=== PATIENT | female | born 1965 | race Caucasian/White ===

== ENCOUNTER 2020-05-03 04:00 | Emergency (ER) | payer OTHER ==
--- NOTE | 2020-05-03 04:08 | ED Physician Documentation ---
History of Present Illness - Stated complaint Stated Complaint: N/V/D - History obtained from History obtained from: Patient - Additonal information Additional information: 55-year-old female who is undergoing a bowel prep for colonoscopy today and is having severe nausea and vomiting and diarrhea denies any other complaints. Review of Systems Constitutional: reports: Reviewed and negative Eyes: reports: Reviewed and negative Ears: reports: Reviewed and negative Nose: reports: Reviewed and negative Throat: reports: Reviewed and negative Cardiac: reports: Reviewed and negative Respiratory: reports: Reviewed and negative GI: reports: Nausea, Vomiting, Diarrhea : reports: Reviewed and negative Skin: reports: Reviewed and negative Musculoskeletal: reports: Reviewed and negative Neurologic: reports: Reviewed and negative Psychiatric: reports: Reviewed and negative Endocrine: reports: Reviewed and negative Immunocompromised: reports: Reviewed and negative PD PAST MEDICAL HISTORY - Present Medications Home Medications: Ambulatory Orders Medication Instructions Recorded Confirmed Aspirin 1 tab PO DAILY 05/03/20 05/03/20 Losartan Potassium 50 mg PO QPM 05/03/20 05/03/20 Lovastatin 40 mg PO DAILY 05/03/20 05/03/20 Venlafaxine [Effexor] 37.5 mg PO DAILY 05/03/20 05/03/20 hydroCHLOROthiazide 25 mg PO DAILY 05/03/20 05/03/20 [Hydrochlorothiazide] - Allergies Allergies/Adverse Reactions: Allergies Allergy/AdvReac Type Severity Reaction Status Date / Time amoxicillin Allergy Itching Verified 05/03/20 04:23 erythromycin base AdvReac Nausea Verified 05/03/20 04:42 PD ED PE NORMAL - Vitals Vital signs reviewed: Yes - General General: Alert and oriented X 3, No acute distress, Well developed/nourished - HEENT HEENT: Atraumatic, PERRL - Neck Neck: Supple, no meningeal sign - Cardiac Cardiac: RRR, No murmur, Strong equal pulses - Respiratory Respiratory: No respiratory distress, Clear bilaterally - Abdomen Abdomen: Normal bowel sounds, Soft, Non tender, Non distended, No organomegaly - Derm Derm: Warm and dry - Extremities Extremities: No deformity, No tenderness to palpate, Normal ROM s pain, No edema, No calf tenderness / cord - Neuro Neuro: Alert and oriented X 3, 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, No motor deficit, No sensory deficit, Normal speech - Psych Psych: Normal mood, Normal affect Results - Vitals Vitals: Vital Signs - 24 hr 05/03/20 05/03/20 04:00 04:41 Temperature 36.7 C Heart Rate 76 82 Respiratory 13 13 Rate Blood Pressure 123/88 H 152/97 H O2 Saturation 100 100 Oxygen O2 Source Room air - Labs Labs: Laboratory Tests 05/03/20 05/03/20 05/03/20 04:20 04:20 04:20 WBC 10.5 RBC 5.01 Hgb 14.6 Hct 43.3 MCV 86.4 MCH 29.1 MCHC 33.7 RDW 14.3 Plt Count 350 MPV 8.8 Neut # (Auto) 7.4 H Lymph # (Auto) 1.9 Lipscomb # (Auto) 0.8 Eos # (Auto) 0.3 Baso # (Auto) 0.1 Absolute Nucleated RBC 0.00 Nucleated RBC % 0.0 PT 13.9 H INR 1.2 APTT 28.1 Sodium 135 Potassium 2.8 L Chloride 98 L Carbon Dioxide 26 Anion Gap 11.0 BUN 13 Creatinine 1.0 Estimated GFR (MDRD) 57 L Glucose 123 H Lactic Acid Calcium 9.8 Total Bilirubin 2.3 H AST 27 ALT 24 Alkaline Phosphatase 86 Total Protein 8.2 Albumin 4.8 Globulin 3.4 Albumin/Globulin Ratio 1.4 Lipase 36 05/03/20 04:25 WBC RBC Hgb Hct MCV MCH MCHC RDW Plt Count MPV Neut # (Auto) Lymph # (Auto) Lipscomb # (Auto) Eos # (Auto) Baso # (Auto) Absolute Nucleated RBC Nucleated RBC % PT INR APTT Sodium Potassium Chloride Carbon Dioxide Anion Gap BUN Creatinine Estimated GFR (MDRD) Glucose Lactic Acid 1.9 Calcium Total Bilirubin AST ALT Alkaline Phosphatase Total Protein Albumin Globulin Albumin/Globulin Ratio Lipase PD MEDICAL DECISION MAKING - ED course Complexity details: reviewed results, re-evaluated patient (feeling better, patient wants to be discharged so she can go to her colonoscopy at 7 am in [place] considered differential (dehydration. ), d/w patient, other Departure - Departure Disposition: 01 Home, Self Care Clinical Impression: Dehydration Vomiting Qualifiers: Vomiting type: unspecified Vomiting Intractability: unspecified Nausea presence: unspecified Qualified Code(s): R11.10 - Vomiting, unspecified Diarrhea Qualifiers: Diarrhea type: unspecified type Qualified Code(s): R19.7 - Diarrhea, unspecified Condition: Stable Instructions: ED Diet Vomiting Diarrhea Follow-Up: your, doctor [Other] Comments: Okay to go to colonoscopy this morning. Call your primary care provider today to schedule follow-up.
[2020-05-03] MEDS ORDERED: ONDANSETRON 4 MG/2 ML VIAL IVP STA (04:18)
[2020-05-03] MEDS ORDERED: SODIUM CHLORIDE 0.9% 1,000 ML IV STA ×2 (04:18→04:44)
[2020-05-03 04:28] LABS: BASOPHILS # (AUTO) 0.1 10^3/uL (0.0-0.1); BASOPHILS % (AUTO) 0.7 %; EOSINOPHILS # (AUTO) 0.3 10^3/uL (0.0-0.7); EOSINOPHILS % (AUTO) 2.6 %; HGB - HEMOGLOBIN 14.6 g/dL (12.0-16.0); LYMPHOCYTES # (AUTO) 1.9 10^3/uL (1.5-3.5); LYMPHOCYTES % (AUTO) 18.1 %; MEAN CORPUSCULAR HEMOGLOBIN 29.1 pg (27.0-31.0); MEAN CORPUSCULAR HGB CONC 33.7 g/dL (32.0-36.0); MEAN CORPUSCULAR VOLUME 86.4 fL (81.0-99.0); MEAN PLATELET VOLUME 8.8 fL (7.9-10.8); MONOCYTES # (AUTO) 0.8 10^3/uL (0.0-1.0); MONOCYTES % (AUTO) 7.5 %; NEUTROPHILS # (AUTO) 7.4 10^3/uL (1.5-6.6); NEUTROPHILS % (AUTO) 70.6 %; PLT - PLATELET COUNT 350 10^3/uL (130-450); RED BLOOD COUNT 5.01 10^6/uL (4.20-5.40); RED CELL DISTRIBUTION WIDTH 14.3 % (12.0-15.0); WHITE BLOOD COUNT 10.5 x10^3/uL (4.8-10.8)
[2020-05-03 04:33] LABS: INR 1.2 (0.8-1.2); PT - PROTHROMBIN TIME 13.9 secs (9.9-12.6)
[2020-05-03 04:40] LABS: ALBUMIN 4.8 g/dL (3.2-5.5); ALBUMIN/GLOBULIN RATIO 1.4 (1.0-2.2); BILIRUBIN,TOTAL 2.3 mg/dL (0.2-1.0); CALCIUM 9.8 mg/dL (8.5-10.3); PARTIAL THROMBOPLASTIN TIME 28.1 secs (24.9-33.3); TOTAL PROTEIN 8.2 g/dL (6.7-8.2)
[2020-05-03 05:38] VITALS: BP 140/90
== END 2020-05-03 05:37 | disposition home or self-care (01) ==
LOC: ED 04:00
DX: E86.0 Dehydration (principal); R11.2 Nausea with vomiting, unspecified; R19.7 Diarrhea, unspecified; Z79.82 Long term (current) use of aspirin
CPT/HCPCS: 36415; 80053; 83605; 83690; 85025; 85610; 85730; 96361; 96374; 99283

== ENCOUNTER 2021-01-16 21:06 | Emergency (ER) | payer OTHER ==
[2021-01-16 21:52] LABS: BASOPHILS # (AUTO) 0.1 10^3/uL (0.0-0.1); BASOPHILS % (AUTO) 0.7 %; EOSINOPHILS # (AUTO) 0.3 10^3/uL (0.0-0.7); EOSINOPHILS % (AUTO) 2.9 %; HCT - HEMATOCRIT 42.3 % (37.0-47.0); HGB - HEMOGLOBIN 14.2 g/dL (12.0-16.0); LYMPHOCYTES # (AUTO) 2.1 10^3/uL (1.5-3.5); LYMPHOCYTES % (AUTO) 19.8 %; MEAN CORPUSCULAR HEMOGLOBIN 28.9 pg (27.0-31.0); MEAN CORPUSCULAR HGB CONC 33.6 g/dL (32.0-36.0); MEAN CORPUSCULAR VOLUME 86.2 fL (81.0-99.0); MEAN PLATELET VOLUME 9.1 fL (7.9-10.8); MONOCYTES # (AUTO) 0.6 10^3/uL (0.0-1.0); MONOCYTES % (AUTO) 5.8 %; NEUTROPHILS # (AUTO) 7.5 10^3/uL (1.5-6.6); NEUTROPHILS % (AUTO) 70.4 %; PLT - PLATELET COUNT 321 10^3/uL (130-450); RED BLOOD COUNT 4.91 10^6/uL (4.20-5.40); RED CELL DISTRIBUTION WIDTH 14.3 % (12.0-15.0); WHITE BLOOD COUNT 10.6 x10^3/uL (4.8-10.8)
--- NOTE | 2021-01-16 21:53 | ED Physician Documentation ---
PD HPI ABD PAIN - Stated complaint Stated Complaint: ABD PX/VOMITING - Chief complaint Chief Complaint: Abd Pain - History obtained from History obtained from: Patient - History of Present Illness Timing - onset: Enter time (14:00), Today Timing - details: Gradual onset Pain level now: 4 Quality: Cramping Location: All over / everywhere Radiation: Other (no radiation) Improved by: Other (no ameliorating factors) Worsened by: Other (no exacerbating factors) Associated symptoms: Nausea, Vomiting. No: Fever, Diarrhea, Constipation, Dysuria Similar symptoms before: Has not had sx before Recently seen: Not recently seen - Additional information Additional information: Patient complains of nausea and vomiting, generalized abdominal cramping pain, since 2 PM today. She denies fevers and has been checking her temperature, although she has also been having chills and sweats. She also complains of fa tigue. Review of Systems Constitutional: reports: Chills, Fatigue, Sweats. denies: Fever Cardiac: reports: Reviewed and negative Respiratory: reports: Reviewed and negative GI: reports: Abdominal Pain, Nausea, Vomiting. 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 - Present Medications Home Medications: Ambulatory Orders Medication Instructions Recorded Confirmed Aspirin 1 tab PO DAILY 05/03/20 01/16/21 Losartan Potassium 50 mg PO QPM 05/03/20 01/16/21 Lovastatin 40 mg PO DAILY 05/03/20 01/16/21 Venlafaxine [Effexor] 37.5 mg PO DAILY 05/03/20 01/16/21 hydroCHLOROthiazide 25 mg PO DAILY 05/03/20 01/16/21 [Hydrochlorothiazide] Ondansetron Odt [Zofran] 4 mg TL Q6H PRN #10 tablet 01/16/21 - Allergies Allergies/Adverse Reactions: Allergies Allergy/AdvReac Type Severity Reaction Status Date / Time amoxicillin Allergy Itching Verified 01/16/21 21:31 erythromycin base AdvReac Nausea Verified 01/16/21 21:31 - Social History Does the pt smoke?: No Smoking Status: Never smoker Does the pt drink ETOH?: No Does the pt have substance abuse?: No - Immunizations Immunizations are current?: Yes - POLST Patient has POLST: No PD ED PE NORMAL - Vitals Vital signs reviewed: Yes - General General: Alert and oriented X 3, No acute distress, Well developed/nourished - HEENT HEENT: Other (tacky mucous membranes) - Neck Neck: Supple, no meningeal sign - Cardiac Cardiac: RRR, No murmur - Respiratory Respiratory: No respiratory distress, Clear bilaterally - Abdomen Abdomen: Normal bowel sounds, Soft, Non tender, Non distended, No organomegaly - Back Back: No CVA TTP Results - Vitals Vitals: Vital Signs - 24 hr 01/16/21 01/16/21 01/17/21 21:20 23:29 00:09 Temperature 36.3 C L 36.7 C 36.3 C L Heart Rate 74 89 87 Respiratory 18 16 Rate Blood Pressure 141/85 H 171/98 H 161/96 H O2 Saturation 100 98 99 Oxygen O2 Source Room air - Labs Labs: Laboratory Tests 01/16/21 01/16/21 21:45 21:45 WBC 10.6 RBC 4.91 Hgb 14.2 Hct 42.3 MCV 86.2 MCH 28.9 MCHC 33.6 RDW 14.3 Plt Count 321 MPV 9.1 Neut # (Auto) 7.5 H Lymph # (Auto) 2.1 Kemper # (Auto) 0.6 Eos # (Auto) 0.3 Baso # (Auto) 0.1 Absolute Nucleated RBC 0.00 Nucleated RBC % 0.0 Sodium 142 Potassium 2.9 L Chloride 101 Carbon Dioxide 28 Anion Gap 13.0 BUN 15 Creatinine 0.7 Estimated GFR (MDRD) 87 L Glucose 159 H Calcium 9.4 Total Bilirubin 1.6 H AST 22 ALT 16 Alkaline Phosphatase 91 Total Protein 7.7 Albumin 4.6 Globulin 3.1 Albumin/Globulin Ratio 1.5 Lipase 38 PD MEDICAL DECISION MAKING - ED course Complexity details: reviewed results, re-evaluated patient, considered differential, d/w patient ED course: patient presents with nausea and vomiting, generalized abdominal cramping but completely nontender on abdominal exam. she is afebrile and has a normal CBC including normal white blood cell count. The rest of her labs are unremarkable except for mild hypokalemia with a potassium of 2.9, and mild hyperbilirubinemia with a bilirubin of 1.6. Of note, she had a Reggie Esparza of 2.3 on a visit April of last year. The rest of her liver function tests tonight are normal. On reevaluation, after Zofran and IV fluids, patient says she feels well and is comfortable with discharge home. I reviewed the lab test results with her, and advised her to follow up with her primary care provider for reevaluation of her symptoms as well as her lab abnormalities. Departure - Departure Disposition: , Self Care Clinical Impression: Hypokalemia Vomiting Qualifiers: Vomiting type: unspecified Vomiting Intractability: non-intractable Nausea presence: with nausea Qualified Code(s): R11.2 - Nausea with vomiting, unspecified Abdominal pain Qualifiers: Abdominal location: generalized Qualified Code(s): R10.84 - Generalized abdominal pain Condition: Good Instructions: ED Potassium Deficiency, ED Nausea Vomiting Prescriptions: Ondansetron Odt [Zofran] 4 mg TL Q6H PRN #10 tablet PRN Reason: Nausea / Vomiting Comments: Follow up with your primary care provider to discuss the lab abnormalities and likely retesting Discharge Date/Time: 01/17/21 00:34
[2021-01-16 22:06] LABS: ALBUMIN 4.6 g/dL (3.2-5.5); ALBUMIN/GLOBULIN RATIO 1.5 (1.0-2.2); BILIRUBIN,TOTAL 1.6 mg/dL (0.2-1.0); CALCIUM 9.4 mg/dL (8.5-10.3); CREATININE 0.7 mg/dL (0.4-1.0); POTASSIUM 2.9 mmol/L (3.5-5.0); TOTAL PROTEIN 7.7 g/dL (6.7-8.2)
[2021-01-16] MEDS ORDERED: KETOROLAC 30 MG/ML VIAL IVP STA (22:06)
[2021-01-16] MEDS ORDERED: SODIUM CHLORIDE 0.9% 1,000 ML IV STA (22:06)
[2021-01-16] MEDS ORDERED: ONDANSETRON 4 MG/2 ML VIAL IVP STA (22:06)
[2021-01-16] MEDS ORDERED: ONDANSETRON ODT 4 MG Prepack 2 TL PRN (23:47)
[2021-01-16] MEDS ORDERED: POTASSIUM CHLORIDE 20 MEQ TABLET PO STA (23:47)
[2021-01-17 00:22] VITALS: BP 161/96
== END 2021-01-17 00:34 | disposition home or self-care (01) ==
LOC: ED 21:06
DX: R11.2 Nausea with vomiting, unspecified (principal); R10.84 Generalized abdominal pain; E87.6 Hypokalemia; R79.89 Other specified abnormal findings of blood chemistry; I10 Essential (primary) hypertension; Z79.82 Long term (current) use of aspirin
CPT/HCPCS: 36415; 80053; 83690; 85025; 96361; 96374; 96375; 99283; 99284; A9270

== ENCOUNTER 2021-06-06 06:45 | Emergency (ER) | payer OTHER ==
[2021-06-06] MEDS ORDERED: ONDANSETRON 4 MG/2 ML VIAL IVP STA (07:11)
[2021-06-06] MEDS ORDERED: SODIUM CHLORIDE 0.9% 1,000 ML IV STA (07:11)
[2021-06-06 07:34] LABS: BASOPHILS # (AUTO) 0.1 10^3/uL (0.0-0.1); BASOPHILS % (AUTO) 0.7 %; EOSINOPHILS % (AUTO) 0.3 %; HCT - HEMATOCRIT 42.5 % (37.0-47.0); HGB - HEMOGLOBIN 14.2 g/dL (12.0-16.0); LYMPHOCYTES # (AUTO) 1.3 10^3/uL (1.5-3.5); LYMPHOCYTES % (AUTO) 13.2 %; MEAN CORPUSCULAR HEMOGLOBIN 28.6 pg (27.0-31.0); MEAN CORPUSCULAR HGB CONC 33.4 g/dL (32.0-36.0); MEAN CORPUSCULAR VOLUME 85.5 fL (81.0-99.0); MEAN PLATELET VOLUME 8.9 fL (7.9-10.8); MONOCYTES # (AUTO) 0.4 10^3/uL (0.0-1.0); MONOCYTES % (AUTO) 4.2 %; NEUTROPHILS # (AUTO) 8.2 10^3/uL (1.5-6.6); NEUTROPHILS % (AUTO) 80.8 %; PLT - PLATELET COUNT 313 10^3/uL (130-450); RED BLOOD COUNT 4.97 10^6/uL (4.20-5.40); RED CELL DISTRIBUTION WIDTH 14.4 % (12.0-15.0); WHITE BLOOD COUNT 10.1 x10^3/uL (4.8-10.8)
--- NOTE | 2021-06-06 07:40 | ED Physician Documentation ---
History of Present Illness - Stated complaint Stated Complaint: VOMITING/DEHYDARTION - Chief complaint Chief Complaint: Abd Pain - History obtained from History obtained from: Patient - Additonal information Additional information: Patient comes emergency department chief complaint of nausea vomiting and upper abdominal pain that started last night. Patient states that started roughly 1999 which was about 2 hours after she ate dinner. The patient had he did have frozen egg rolls and states that nobody else ate the same food. She had been feeling fine all day and suddenly began to feel nauseated about 2 hours later. She ended up vomiting, and states she has vomited all throughout the night. The patient has been trying to take sips of water in between, and states that the water does not come up right away but that she just cannot hold anything down. Patient does not have any nausea medicine at home. She states she has felt bloated and gassy", but has not had diarrhea. She has been passing flatus copiously. No sick contacts. The patient has had some sweats but no measured fever. Her highest temperature orally was 99.5. The patient states she has a pressure-like discomfort and cramping sensation intermittently across her upper abdomen and wrapping around to her right flank. She states it does not really feel like a pain, but it is uncomfortable to lay over there. No history of cholelithiasis in the patient and the family. Patient still has her gallbladder. She has had a total hysterectomy, but still has her appendix. No history of bowel obstruction. Patient denies any dysuria. No other complaints at this time. Review of Systems Ten Systems: 10 systems reviewed and negative Constitutional: reports: Reviewed and negative Eyes: reports: Reviewed and negative Ears: reports: Reviewed and negative Nose: reports: Reviewed and negative Throat: reports: Reviewed and negative Cardiac: reports: Reviewed and negative Respiratory: reports: Reviewed and negative GI: reports: Abdominal Pain, Nausea, Vomiting. 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 - Present Medications Home Medications: Ambulatory Orders Medication Instructions Recorded Confirmed Aspirin 1 tab PO DAILY 05/03/20 06/06/21 Losartan Potassium 50 mg PO QPM 05/03/20 06/06/21 Venlafaxine [Effexor] 37.5 mg PO DAILY 05/03/20 06/06/21 hydroCHLOROthiazide 25 mg PO DAILY 05/03/20 06/06/21 [Hydrochlorothiazide] Ondansetron Odt [Zofran] 4 mg TL Q6H PRN #10 tablet 01/16/21 06/06/21 Atorvastatin Calcium 40 mg PO QPM 06/06/21 06/06/21 Ondansetron Odt [Zofran] 4 mg TL Q6H PRN #10 tablet 06/06/21 - Allergies Allergies/Adverse Reactions: Allergies Allergy/AdvReac Type Severity Reaction Status Date / Time amoxicillin Allergy Itching Verified 06/06/21 06:57 erythromycin base AdvReac Nausea Verified 06/06/21 06:57 - Social History Does the pt smoke?: No Smoking Status: Never smoker Does the pt drink ETOH?: No Does the pt have substance abuse?: No - Immunizations Immunizations are current?: Yes - POLST Patient has POLST: No PD ED PE NORMAL - Vitals Vital signs reviewed: Yes - General General: Alert and oriented X 3, No acute distress, Well developed/nourished - HEENT HEENT: Atraumatic, PERRL, EOMI, Moist mucous membranes - Neck Neck: Supple, no meningeal sign - Cardiac Cardiac: RRR, No murmur, Strong equal pulses - Respiratory Respiratory: No respiratory distress, Clear bilaterally - Abdomen Abdomen: Soft, Non tender (Deep palpation right upper quadrant does not elicit tenderness.), Non distended, Other - Back Back: No CVA TTP - Derm Derm: Normal color, Warm and dry, No rash - Extremities Extremities: No deformity, Normal ROM s pain, No edema, No calf tenderness / cord - Neuro Neuro: Alert and oriented 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, 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, Normal speech - Psych Psych: Normal mood, Normal affect Results - Vitals Vitals: Vital Signs - 24 hr 06/06/21 06/06/21 07:38 08:36 Temperature 36.6 C Heart Rate 90 86 Respiratory 16 16 Rate Blood Pressure 180/101 H 176/93 H O2 Saturation 100 100 Oxygen O2 Source Room air - Labs Labs: Laboratory Tests 06/06/21 06/06/21 06/06/21 07:20 07:30 07:30 WBC 10.1 RBC 4.97 Hgb 14.2 Hct 42.5 MCV 85.5 MCH 28.6 MCHC 33.4 RDW 14.4 Plt Count 313 MPV 8.9 Neut # (Auto) 8.2 H Lymph # (Auto) 1.3 L Giles # (Auto) 0.4 Eos # (Auto) 0.0 Baso # (Auto) 0.1 Absolute Nucleated RBC 0.00 Nucleated RBC % 0.0 Sodium 141 Potassium 3.5 Chloride 103 Carbon Dioxide 27 Anion Gap 11.0 BUN 12 Creatinine 0.7 Estimated GFR (MDRD) 86 L Glucose 143 H Calcium 9.2 Total Bilirubin 1.2 H AST 22 ALT 19 Alkaline Phosphatase 89 Total Protein 7.6 Albumin 4.2 Globulin 3.4 Albumin/Globulin Ratio 1.2 Lipase 29 Urine Color YELLOW Urine Clarity HAZY Urine pH 7.5 Ur Specific Hedrick 1.020 Urine Protein TRACE Urine Glucose (UA) NEGATIVE Urine Ketones NEGATIVE Urine Occult Blood SMALL H Urine Nitrite NEGATIVE Urine Bilirubin NEGATIVE Urine Urobilinogen 0.2 (NORMAL) Ur Leukocyte Esterase NEGATIVE Urine RBC 6-10 H Urine WBC 0-3 Ur Squamous Epith Cells RARE Squamous Urine Bacteria Few Urine Mucus Few Strands Ur Microscopic Review INDICATED Urine Culture Comments NOT INDICATED PD MEDICAL DECISION MAKING - ED course Complexity details: reviewed old records, reviewed results, re-evaluated patient, considered differential, d/w patient ED course: The patient was treated symptomatically with IV fluids and Zofran, and treated worked up with an abdominal panel and CBC, which were unremarkable. Pt was found to be feeling better. We have discussed the usual indications for return. Departure - Departure Disposition: 01 Home, Self Care Clinical Impression: Vomiting Abdominal pain Qualifiers: Abdominal location: upper abdomen, unspecified Qualified Code(s): R10.10 - Upper abdominal pain, unspecified Condition: Stable Instructions: ED Nausea Vomiting Prescriptions: Ondansetron Odt [Zofran] 4 mg TL Q6H PRN #10 tablet PRN Reason: Nausea / Vomiting Comments: Your labs look good. You are not tender over the area of your gallbladder, and I suspect that you most likely have either a viral "stomach flu" or a food related issue, food poisoning or otherwise. Either way, you should be feeling better in the next couple of days. You have been hydrated with a liter of saline solution, and as such, your stomach would probably benefit from a break from any intake., Including water. Around noon, you may try drinking just a sip or 2 of water and see if this stays down for 20 minutes. If you have not vomited after 20 minutes, you may take another sip or 2 of water. If you are able to tolerate this consistently on an every 20 minutes basis, you may increase the frequency of sips to every 10 or 15 minutes. If you do not have any further vomiting with this, you may continue to advance your intake of liquids, as tolerated. It is advisable to wait to try eating anything until tomorrow morning. At that time, you may try white crackers, Ramen noodles, or other simple starches. If it anytime you become nauseated again, please hold off on further oral intake and take the nausea medication you have been prescribed. If you are not feeling better in 3 days, please call your primary doctor for a follow-up appointment. If you notice in the coming days, weeks, or months, that you are having issues with upper abdominal discomfort and nausea after eating, particularly fatty or greasy foods, you should talk to your doctor about having an ultrasound of your gallbladder. Discharge Date/Time: 06/06/21 09:02
[2021-06-06 07:48] LABS: BILIRUBIN,URINE NEGATIVE (NEGATIVE); GLUCOSE, URINE (UA) NEGATIVE (NEGATIVE); KETONES,URINE (UA) NEGATIVE (NEGATIVE); LEUKOCYTE ESTERASE, URINE NEGATIVE (NEGATIVE); NITRITE,URINE NEGATIVE (NEGATIVE); OCCULT BLOOD,URINE SMALL (NEGATIVE); PH,URINE 7.5 PH (5.0-7.5); PROTEIN,URINE TRACE mg/dL (NEGATIVE); UROBILINOGEN,URINE 0.2 (NORMAL) E.U./dL (NORMAL)
[2021-06-06 07:54] LABS: CLARITY,URINE HAZY (CLEAR)
[2021-06-06 08:03] LABS: BACTERIA,URINE Few /HPF (None Seen); MUCUS,URINE Few Strands; SQUAMOUS EPITHELIAL CELL,UR RARE Squamous (<= Few); WBC,URINE 0-3 /HPF (0-5)
[2021-06-06 08:06] LABS: ALBUMIN 4.2 g/dL (3.2-5.5); ALBUMIN/GLOBULIN RATIO 1.2 (1.0-2.2); BILIRUBIN,TOTAL 1.2 mg/dL (0.2-1.0); CALCIUM 9.2 mg/dL (8.5-10.3); CREATININE 0.7 mg/dL (0.4-1.0); POTASSIUM 3.5 mmol/L (3.5-5.0); TOTAL PROTEIN 7.6 g/dL (6.7-8.2)
--- NOTE | 2021-06-06 08:19 | XRAY Report ---
PROCEDURE: Abdomen 1 View X-Ray INDICATIONS: abd pain, vomiting, h/o abd surgery TECHNIQUE: 1 view of the abdomen were acquired. COMPARISON: None FINDINGS: Surgical changes and devices: None. Bowel: No pneumoperitoneum. The bowel gas pattern is normal. Soft tissues: No masses; visualized solid organ contours appear normal in size. No suspicious abdom inal calcifications. Bones: No suspicious bony abnormalities. IMPRESSION: Normal bowel gas pattern. Reviewed by: Keegan Underwood MD on 06/06/2021 8:18 AM PDT Approved by: Keegan Underwood MD on 06/06/2021 8:18 AM PDT Station ID: [id number]
[2021-06-06 08:37] VITALS: BP 176/93
== END 2021-06-06 09:02 | disposition home or self-care (01) ==
LOC: ED 06:45
DX: R11.2 Nausea with vomiting, unspecified (principal); R10.10 Upper abdominal pain, unspecified; I10 Essential (primary) hypertension
CPT/HCPCS: 36415; 80053; 81001; 81003; 83690; 85025; 87086; 96361; 96374; 99284

== ENCOUNTER 2021-10-28 13:32 | Outpatient (CLI) | payer OTHER ==
[2021-10-28 18:26] LABS: BASOPHILS # (AUTO) 0.1 10^3/uL (0.0-0.1); BASOPHILS % (AUTO) 0.8 %; EOSINOPHILS % (AUTO) 0.4 %; HCT - HEMATOCRIT 44.9 % (37.0-47.0); HGB - HEMOGLOBIN 14.8 g/dL (12.0-16.0); LYMPHOCYTES # (AUTO) 1.7 10^3/uL (1.5-3.5); LYMPHOCYTES % (AUTO) 15.9 %; MEAN CORPUSCULAR HEMOGLOBIN 28.9 pg (27.0-31.0); MEAN CORPUSCULAR VOLUME 87.7 fL (81.0-99.0); MONOCYTES # (AUTO) 0.6 10^3/uL (0.0-1.0); MONOCYTES % (AUTO) 5.1 %; NEUTROPHILS # (AUTO) 8.2 10^3/uL (1.5-6.6); PLT - PLATELET COUNT 303 10^3/uL (130-450); RED BLOOD COUNT 5.12 10^6/uL (4.20-5.40); RED CELL DISTRIBUTION WIDTH 13.9 % (12.0-15.0); WHITE BLOOD COUNT 10.7 x10^3/uL (4.8-10.8)
[2021-10-28 18:50] LABS: ALBUMIN 4.4 g/dL (3.2-5.5); ALBUMIN/GLOBULIN RATIO 1.2 (1.0-2.2); ALKALINE PHOSPHATASE 81 IU/L (42-121); ALT ALANINE AMINOTRANSFERASE 19 IU/L (10-60); AST ASPARTATE AMINOTRANSFERASE 21 IU/L (10-42); BILIRUBIN,TOTAL 1.8 mg/dL (0.2-1.0); BUN - BLOOD UREA NITROGEN 17 mg/dL (6-20); CARBON DIOXIDE - CO2 27 mmol/L (21-32); CHLORIDE 99 mmol/L (101-111); CREATININE 0.6 mg/dL (0.4-1.0); GFR - MDRD 103 (>89); GLUCOSE 117 mg/dL (70-100); LIPASE 35 U/L (22-51); POTASSIUM 3.7 mmol/L (3.5-5.0); SODIUM 138 mmol/L (135-145)
[2021-10-28 19:41] LABS: CRP - C-REACTIVE PROTEIN < 1.0 mg/dL (0-1.0)
== END 2021-10-28 23:59 | disposition home or self-care (01) ==
LOC: LAB.N 13:32
PROVIDERS: ATTEND Registered Nurse
DX: R11.10 Vomiting, unspecified (principal); R10.9 Unspecified abdominal pain
CPT/HCPCS: 36415; 80053; 83690; 85025; 86140

== ENCOUNTER 2021-11-25 10:05 | Emergency (ER) | payer OTHER ==
[2021-11-25 10:41] LABS: BASOPHILS # (AUTO) 0.1 10^3/uL (0.0-0.1); BASOPHILS % (AUTO) 0.7 %; EOSINOPHILS # (AUTO) 0.1 10^3/uL (0.0-0.7); EOSINOPHILS % (AUTO) 1.1 %; HCT - HEMATOCRIT 45.1 % (37.0-47.0); HGB - HEMOGLOBIN 14.8 g/dL (12.0-16.0); LYMPHOCYTES # (AUTO) 1.7 10^3/uL (1.5-3.5); LYMPHOCYTES % (AUTO) 18.3 %; MEAN CORPUSCULAR HEMOGLOBIN 28.4 pg (27.0-31.0); MEAN CORPUSCULAR HGB CONC 32.8 g/dL (32.0-36.0); MEAN CORPUSCULAR VOLUME 86.4 fL (81.0-99.0); MEAN PLATELET VOLUME 9.5 fL (7.9-10.8); MONOCYTES # (AUTO) 0.4 10^3/uL (0.0-1.0); MONOCYTES % (AUTO) 4.3 %; NEUTROPHILS % (AUTO) 75.3 %; PLT - PLATELET COUNT 365 10^3/uL (130-450); RED BLOOD COUNT 5.22 10^6/uL (4.20-5.40); RED CELL DISTRIBUTION WIDTH 14.4 % (12.0-15.0); WHITE BLOOD COUNT 9.2 x10^3/uL (4.8-10.8)
[2021-11-25] MEDS ORDERED: ONDANSETRON 4 MG/2 ML VIAL IVP STA (10:47)
[2021-11-25] MEDS ORDERED: KETOROLAC 30 MG/ML VIAL IVP STA (10:47)
[2021-11-25] MEDS ORDERED: SODIUM CHLORIDE 0.9% 1,000 ML IV STA (10:47)
[2021-11-25 10:48] LABS: BILIRUBIN,URINE NEGATIVE (NEGATIVE); GLUCOSE, URINE (UA) NEGATIVE (NEGATIVE); KETONES,URINE (UA) NEGATIVE (NEGATIVE); LEUKOCYTE ESTERASE, URINE NEGATIVE (NEGATIVE); NITRITE,URINE NEGATIVE (NEGATIVE); OCCULT BLOOD,URINE TRACE-INTA (NEGATIVE); PROTEIN,URINE NEGATIVE (NEGATIVE); UROBILINOGEN,URINE 0.2 (NORMAL) E.U./dL (NORMAL)
--- NOTE | 2021-11-25 10:52 | ED Physician Documentation ---
PD HPI ABD PAIN - Stated complaint Stated Complaint: ABD PX - Chief complaint Chief Complaint: Abd Pain - History obtained from History obtained from: Patient - History of Present Illness Timing - onset: Last night Timing - duration: Hours Timing - details: Abrupt onset, Still present Quality: Cramping, Sharp, Pain Location: RUQ Radiation: Right flank Improved by: Other (nothing) Worsened by: Other (nothing) Associated symptoms: Nausea, Diarrhea. No: Vomiting Similar symptoms before: Diagnosis (gastroenteritis) Recently seen: Not recently seen - Additional information Additional information: 56-year-old female reports that she began to have generalized abdominal pain last night as well as nausea and vomiting. She indicates the pain is more to the right side and radiating to the right flank. She does not have modifying factors for this pain. She has had this pain previously a number of times and it has resolved. She has been into the emergency department and evaluated for gastroenteritis. She has not had imaging procedures previously. Review of Systems Constitutional: reports: Chills. denies: Fever Eyes: denies: Decreased vision Ears: denies: Ear pain Nose: denies: Congestion Throat: denies: Sore throat Cardiac: denies: Chest pain / pressure, Palpitations Respiratory: denies: Dyspnea, Cough GI: reports: Abdominal Pain, Nausea, Vomiting. denies: Constipation, Diarrhea : denies: Dysuria Skin: denies: Rash Musculoskeletal: reports: Back pain. 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 : None HEENT: None Psych: Depression, Anxiety Musculoskeletal: None Derm: None - Past Surgical History Past Surgical History: Yes /SINGLE STROKE PREFORMER: Hysterectomy, Oophrectomy - Present Medications Home Medications: Ambulatory Orders Medication Instructions Recorded Confirmed Aspirin 1 tab PO DAILY 05/03/20 06/06/21 Losartan Potassium 50 mg PO QPM 05/03/20 06/06/21 Venlafaxine [Effexor] 37.5 mg PO DAILY 05/03/20 06/06/21 hydroCHLOROthiazide 25 mg PO DAILY 05/03/20 06/06/21 [Hydrochlorothiazide] Ondansetron Odt [Zofran] 4 mg TL Q6H PRN #10 tablet 01/16/21 06/06/21 Atorvastatin Calcium 40 mg PO QPM 06/06/21 06/06/21 Ondansetron Odt [Zofran] 4 mg TL Q6H PRN #10 tablet 06/06/21 - Allergies Allergies/Adverse Reactions: Allergies Allergy/AdvReac Type Severity Reaction Status Date / Time amoxicillin Allergy Itching Verified 06/06/21 06:57 Sulfa (Sulfonamide Allergy Unknown Verified 11/25/21 10:16 Antibiotics) erythromycin base AdvReac Nausea Verified 06/06/21 06:57 - Social History Does the pt smoke?: No Smoking Status: Never smoker Does the pt drink ETOH?: No Does the pt have substance abuse?: No - Immunizations Immunizations are current?: Yes - POLST Patient has POLST: No PD ED PE NORMAL - General General: Alert and oriented X 3, No acute distress, Well developed/nourished - HEENT HEENT: Atraumatic, PERRL, EOMI - Neck Neck: Supple, no meningeal sign, No bony TTP - Cardiac Cardiac: RRR, No murmur - Respiratory Respiratory: No respiratory distress, Clear bilaterally - Abdomen Abdomen: Normal bowel sounds, Soft, Non tender, Non distended, No organomegaly - Back Back: No CVA TTP, No spinal TTP - Derm Derm: Normal color, Warm and dry, No rash - Extremities Extremities: No deformity, No edema - Neuro Neuro: Alert and oriented X 3, 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, No motor deficit, No sensory deficit, Normal speech Eye Opening: Spontaneous Motor: Obeys Commands Verbal: Oriented GCS Score: 15 - Psych Psych: Normal mood, Normal affect Results - Vitals Vitals: Vital Signs - 24 hr 11/25/21 11/25/21 11/25/21 10:12 11:38 13:00 Temperature 36.3 C L Heart Rate 76 83 79 Respiratory 18 16 16 Rate Blood Pressure 112/70 194/194 H 172/93 H O2 Saturation 98 100 99 Oxygen O2 Source Room air - Labs Labs: Laboratory Tests 11/25/21 11/25/21 11/25/21 10:20 10:29 10:29 WBC 9.2 RBC 5.22 Hgb 14.8 Hct 45.1 MCV 86.4 MCH 28.4 MCHC 32.8 RDW 14.4 Plt Count 365 MPV 9.5 Neut # (Auto) 7.0 H Lymph # (Auto) 1.7 [place] # (Auto) 0.4 Eos # (Auto) 0.1 Baso # (Auto) 0.1 Absolute Nucleated RBC 0.00 Nucleated RBC % 0.0 Sodium 138 Potassium 2.9 L Chloride 99 L Carbon Dioxide 27 Anion Gap 12.0 BUN 12 Creatinine 0.7 Estimated GFR (MDRD) 86 L Glucose 142 H Calcium 9.1 Total Bilirubin 1.4 H AST 26 ALT 18 Alkaline Phosphatase 90 Total Protein 8.0 Albumin 4.6 Globulin 3.4 Albumin/Globulin Ratio 1.4 Lipase 34 Urine Color YELLOW Urine Clarity CLEAR Urine pH 6.0 Ur Specific [place] 1.025 Urine Protein NEGATIVE Urine Glucose (UA) NEGATIVE Urine Ketones NEGATIVE Urine Occult Blood TRACE-INTA Urine Nitrite NEGATIVE Urine Bilirubin NEGATIVE Urine Urobilinogen 0.2 (NORMAL) Ur Leukocyte Esterase NEGATIVE Ur Microscopic Review NOT INDICATED Urine Culture Comments NOT INDICATED - Rads (name of study) CT ab/pel with Radiology: Prelim report reviewed (Impression: 1. Cholelithiasis as detailed above.), EMP read indepedently, See rad report Procedures - Bedside sono Bedside sono by EMP: With use of bedside ultrasound the right kidney is imaged there is minimal hydronephrosis present. The gallbladder is imaged it is sonographically nontender there are no obvious stones and the wall appears thickened consistent with contraction. - IVC sono (time) 1045 Bedside IVC sono: IVC measures (cm) (1.13), Dehydration (est 1 liter deficit) PD MEDICAL DECISION MAKING - ED course Complexity details: reviewed results, re-evaluated patient, considered differential, d/w patient, d/w transportation consultant (Dr. Sow surgery here at [facility] recommends follow-up in his clinic for scheduled cholecystectomy.) ED course: 56-year-old female reports the emergency measurement again today with complaint of generalized abdominal pain. She does not have any specific tenderness and does not have a Trevino's sign. My initial thought was severe unmodifiable abdominal pain radiating to the right flank perhaps a kidney stone. I did image the patient's kidney with a bedside ultrasound I did not find any significant hydronephrosis. There was mild hydro-. She has had no sonographic tenderness. I did examine the gallbladder which appeared to have a thickened and contracted wall and I was not able to specifically see stones. The patient was treated in the emergency department with Toradol and saline as well as Zofran and had improvement. She has been comfortable in the emergency department and we were able to obtain a CT scan of the abdomen pelvis which demonstrated no evidence of a kidney stone on the right side but a large stone in the neck of the gallbladder. At that point we ordered the ultrasound of the gallbladder demonstrating a 6 mm x 10 mm stone lodged in the neck of the gallbladder with a thickened wall. Patient is currently symptom-free and she recalls maybe 6-8 episodes of this over the last 2 years. I have encouraged the patient to follow-up with a surgeon regarding removal of her gallbladder. I have indicated the patient a number of reasons to return to the emergency department including persistent pain fever and vomiting. Departure - Departure Disposition: 01 Home, Self Care Clinical Impression: Cholelithiasis Qualifiers: Cholelithiasis location: gallbladder Cholecystitis presence: without cholecystitis Biliary obstruction: without biliary obstruction Qualified Code(s): K80.20 - Calculus of gallbladder without cholecystitis without obstruction Condition: Stable Instructions: ED Gallstone W Biliary Colic Follow-Up: Karl Sow MD [Provider Admit Priv/Credential] - Comments: Maureen, today it looks like you have a gallstone that is lodged in the neck of the gallbladder. It is a large gallstone and not likely to get out of the gallstone. This will likely cause you some problems each time you eat a meal that is high in fat. This will cause your gallbladder to want to contract for about 4 to 5 hours. I have given you a number of a surgeon to follow-up with. If you have persistent unrelenting pain that is a reason to return to the emergency department as is fever. The gall bladder itself can become inflamed and usually the pain does not go away. This is another reason to return to the ED.
[2021-11-25 10:53] LABS: ALBUMIN 4.6 g/dL (3.2-5.5); ALBUMIN/GLOBULIN RATIO 1.4 (1.0-2.2); BILIRUBIN,TOTAL 1.4 mg/dL (0.2-1.0); CALCIUM 9.1 mg/dL (8.5-10.3); CREATININE 0.7 mg/dL (0.4-1.0); POTASSIUM 2.9 mmol/L (3.5-5.0)
[2021-11-25 10:53] LABS: CLARITY,URINE CLEAR (CLEAR)
--- OUTSIDE RECORDS SUMMARY | 2021-11-25 10:55 | EXTERNAL MEDICAL SUMMARY RPT | Continuity of Care Document ---
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 Encounters No information. Medications date description facility 20211028 acetaminophen-codeine All 20211028 promethazine All 20211028 losartan All 20211028 atorvastatin All 20211028 venlafaxine All 20211028 hydrochlorothiazide All 20211028 ondansetron hcl All Problems date description facility 20211028 Vomiting, unspecified All 20211028 Vomiting alone All 20211028 Unspecified abdominal pain All 20211028 US ABDOMEN LIMITED All 20211028 Tobacco use and exposure All 20211028 Tobacco smoking status NHIS All 20211028 Never smoker All 20211028 Lipase All 20211028 Details of drug misuse behavior All 20211028 CRP All 20211028 COMPREHENSIVE METABOLIC PANEL All 20211028 CBC W/Diff/Plt All 20211028 Alcohol use All 20211028 Alcohol intake All 20211028 Acute vomiting All 20211028 Acute abdominal pain All 20211028 Abdominal pain, unspecified site All Procedures date description facility 20211028 Ondansetron 4 mg All 20211028 Ketorolac Tromethamine 30 mg/ml Soln A ll 20211028 CRP All 20211028 CBC W/Diff/Plt All 20211028 Lipase All 20211028 COMPREHENSIVE METABOLIC PANEL All Results test status date ordered by attending specimen escobar e urea_nitrogen_blood unknown 20211028 unknown unknown unk nown Erythrocytes_volume_in unknown 20211028 unknown unknown unknown _Blood_by_Automated_cou nt Erythrocyte_distributi unknown 20211028 unknown unknown unknown on_width_Ratio_by_Autom ated_count MCV_Entitic_volume_by_ unknown 20211028 unknown unknown unknown Automated_count MCH_Entitic_mass_by_Au unknown 20211028 unknown unknown unknown tomated_count Platelets_volume_in_Bl unknown 20211028 unknown unknown unknown ood_by_Automated_count Platelet_mean_volume_E unknown 20211028 unknown unknown unknown ntitic_volume_in_Blood_ by_Rees-Antoni neutrophil_count_blood unknown [id number] unknown unknown unknown monocyte_count_blood unknown 13954168 unknown unknown un known lymphocyte_count_blood unknown 59122271 unknown unknown unknown Hemoglobin_Mass_volume unknown 69154691 unknown unknown unknown _in_Blood eosinophil_count_blood unknown 43022885 unknown unknown unknown Basophils_volume_in_Bl unknown 55109837 unknown unknown unknown ood_by_Manual_count leukocyte_count_blood unknown 11522697 unknown unknown u nknown erythrocyte_RBC_count unknown 68163937 unknown unknown u nknown Leukocytes_volume_in_B unknown 60765309 unknown unknown unknown lood_by_Automated_count Glomerular_Filtration_ unknown 22495321 unknown unknown unknown rate platelet_count unknown 13455119 unknown unknown unknown hemoglobin_blood unknown 56334964 unknown unknown unknow n hematocrit_blood unknown 39445490 unknown unknown unknow n potassium_blood unknown 53889821 unknown unknown unknown Glomerular_filtration_r unknown 01024685 unknown unknown unknown ate_1.73_sq_M.predicted _among_non-blacks_Volum e_Rate_Area_in_Serum_Pl asma_or_Blood_by_Creati nine-based_formula_MDRD _ Hematocrit_Volume_Frac unknown 02851886 unknown unknown unknown tion_of_Blood_by_Automa ted_count bilirubin_serum_total unknown 19848352 unknown unknown u nknown alanine_aminotransfera unknown 84400602 unknown unknown unknown se_SGPT_serum carbon_dioxide_serum_t unknown 56624147 unknown unknown unknown otal aspartate_aminotransfe unknown 70972068 unknown unknown unknown rase_SGOT_serum protein_total_serum unknown 32284014 unknown unknown unk nown blood_glucose unknown 06290485 unknown unknown unknown potassium_blood unknown 02704763 unknown unknown unknown mean_corpuscular_volum unknown 27929825 unknown unknown unknown e_RBC Urea_nitrogen_Mass_vol unknown 34901549 unknown unknown unknown ume_in_Serum_or_Plasma globulin_serum unknown 14686453 unknown unknown unknown alkaline_phosphatase_s unknown 87567721 unknown unknown unknown david Sodium_Moles_volume_in unknown 64019611 unknown unknown unknown _Serum_or_Plasma Protein_Mass_volume_in unknown 89937716 unknown unknown unknown _Serum_or_Plasma eosinophil_count_blood unknown 17751882 unknown unknown unknown anion_gap_serum unknown 46463324 unknown unknown unknown mean_platelet_volume unknown 80263817 unknown unknown un known C-reactive_protein_ser unknown 86801906 unknown unknown unknown um basophil_count_blood unknown 58247811 unknown unknown un known monocyte_count_blood unknown 17849708 unknown unknown un known lymphocyte_count_blood unknown 85386914 unknown unknown unknown neutrophil_count_blood unknown 47722806 unknown unknown unknown Glucose_Mass_volume_in unknown 77071332 unknown unknown unknown _Serum_or_Plasma Globulin_Mass_volume_i unknown 79512436 unknown unknown unknown n_Serum Creatinine_Mass_volume unknown 12386150 unknown unknown unknown _in_Serum_or_Plasma Chloride_Moles_volume_ unknown 34798506 unknown unknown unknown in_Serum_or_Plasma carbon_dioxide_serum_t unknown 19739402 unknown unknown unknown otal Calcium_Moles_volume_i unknown 21874704 unknown unknown unknown n_Serum_or_Plasma albumin_serum unknown 87236582 unknown unknown unknown C_reactive_protein_Mas unknown 88739878 unknown unknown unknown s_volume_in_Serum_or_Pl asma Bilirubin.total_Mass_v unknown 87537806 unknown unknown unknown olume_in_Serum_or_Plasm a Aspartate_aminotransfe unknown 68314337 unknown unknown unknown rase_Enzymatic_activity _volume_in_Serum_or_Pla sma Anion_gap_4_in_Serum_o unknown 27140288 unknown unknown unknown r_Plasma creatinine_serum unknown 69513121 unknown unknown unknow n Alkaline_phosphatase_E unknown 40325252 unknown unknown unknown nzymatic_activity_volum e_in_Blood Albumin_Globulin_Mass_ unknown 19168580 unknown unknown unknown Ratio_in_Serum_or_Plasm a Albumin_Mass_volume_in unknown 75838320 unknown unknown unknown _Serum_or_Plasma Alanine_aminotransfera unknown 25583364 unknown unknown unknown se_Enzymatic_activity_v olume_in_Serum_or_Plasm a mean_corpuscular_hemog unknown 30662835 unknown unknown unknown lobin_concentration_rbc sodium_serum unknown 56683048 unknown unknown unknown albumin_globulin_ratio unknown 26199605 unknown unknown unknown _serum chloride_serum unknown 25029205 unknown unknown unknown calcium_serum unknown 82264332 unknown unknown unknown mean_corpuscular_hemog unknown 37141219 unknown unknown unknown lobin_RBC red_blood_cell_distrib unknown 32128486 unknown unknown unknown ution_width T unknown 40324043 unknown unknown unknown T unknown 80126719 unknown unknown unknown T unknown 67232369 unknown unknown unknown T unknown 61912221 unknown unknown unknown T unknown 98876773 unknown unknown unknown T unknown 85767484 unknown unknown unknown NEUTROPHILS_AUTO_ unknown 88921827 unknown unknown unkno wn T unknown 96704562 unknown unknown unknown T unknown 73232331 unknown unknown unknown T unknown 92097750 unknown unknown unknown MONOCYTES_AUTO_ unknown 93319930 unknown unknown unknown T unknown 96850565 unknown unknown unknown T unknown 81931051 unknown unknown unknown T unknown 61477142 unknown unknown unknown T unknown 68881730 unknown unknown unknown LYMPHOCYTES_AUTO_ unknown 49232316 unknown unknown unkno wn T unknown 23409583 unknown unknown unknown T unknown 81409444 unknown unknown unknown T unknown 09342810 unknown unknown unknown T unknown 99058219 unknown unknown unknown T unknown 39917020 unknown unknown unknown T unknown 23054241 unknown unknown unknown T unknown 20473997 unknown unknown unknown GFR_-_MDRD unknown 12766200 unknown unknown unknown T unknown 69750811 unknown unknown unknown EOSINOPHILS_AUTO_ unknown 33948606 unknown unknown unkno wn T unknown 23523036 unknown unknown unknown UBG_-_P-UZLBOQWS_VLVYT unknown 61437594 unknown unknown unknown IN T unknown 65444245 unknown unknown unknown T unknown 76070508 unknown unknown unknown T unknown 53039390 unknown unknown unknown T unknown 82500086 unknown unknown unknown T unknown 86137688 unknown unknown unknown T unknown 54330468 unknown unknown unknown BILIRUBIN_TOTAL unknown 62072555 unknown unknown unknown BASOPHILS_AUTO_ unknown 76394627 unknown unknown unknown T unknown 09380197 unknown unknown unknown T unknown 04707269 unknown unknown unknown T unknown 27153622 unknown unknown unknown T unknown 97715724 unknown unknown unknown ALT_ALANINE_AMINOTRANS unknown 66781547 unknown unknown unknown FERASE ALKALINE_PHOSPHATASE unknown 30952397 unknown unknown un known T unknown 01089622 unknown unknown unknown T unknown 59864003 unknown unknown unknown ALBUMIN_GLOBULIN_RATIO unknown 17207159 unknown unknown unknown facility observation status value reference units lab code abn ormal line range notes All urea_nitroge unknown 17 unknown mg/dL _9 unknown unknown n_blood All Erythrocytes unknown 5.12 unknown _789-8 unknown unknown _volume_in_Bl 10 6/UL ood_by_Automa ted_count All Erythrocyte_ unknown 13.9 unknown % _788-0 unknown unknown distribution_ width_Ratio_b y_Automated_c ount All MCV_Entitic_ unknown 87.7 unknown fL _787-2 unknown unknown volume_by_Aut omated_count All MCH_Entitic_ unknown 28.9 unknown pg _785-6 unknown unknown mass_by_Autom ated_count All Platelets_vo unknown 303 10 unknown _777-3 unknown unknown lume_in_Blood 3/UL _by_Automated _count All Platelet_mea unknown 10.0 unknown fL _776-5 unknown unknown n_volume_Enti tic_volume_in _Blood_by_Ree s-Antoni All neutrophil_c unknown 8.2 10 unknown _752-6 unknown unknown ount_blood 3/UL All monocyte_cou unknown 0.6 10 unknown _743-5 unknown unknown nt_blood 3/UL All lymphocyte_c unknown 1.7 10 unknown _732-8 unknown unknown ount_blood 3/UL All Hemoglobin_M unknown 14.8 unknown g/dL _718-7 unknown unknown ass_volume_in _Blood All eosinophil_c unknown 0.0 10 unknown _712-0 unknown unknown ount_blood 3/UL All Basophils_vo unknown 0.1 10 unknown _705-4 unknown unknown lume_in_Blood 3/UL _by_Manual_co unt All leukocyte_co unknown 10.7 unknown _68 unknown unknown unt_blood X10 3/UL All erythrocyte_ unknown 5.12 unknown _67 unknown unknown RBC_count 10 6/UL All Leukocytes_v unknown 10.7 unknown _6690-2 unknow n unknown olume_in_Bloo X10 d_by_Automate 3/UL d_count All Glomerular_F unknown 103 unknown mL/min _66455 unknown unknown iltration_rat e All platelet_cou unknown 303 10 unknown _66 unknown unknown nt 3/UL All hemoglobin_b unknown 14.8 unknown g/dL _65 unknown unknown lood All hematocrit_b unknown 44.9 unknown % _64 unknown unknown lood All potassium_bl unknown 3.7 unknown meq/L _6298-4 unknow n unknown ood All Glomerular_fi unknown 103 unknown mL/min _48642-3 unkno wn unknown ltration_rate _1.73_sq_M.pr edicted_among _non-blacks_V olume_Rate_Ar ea_in_Serum_P lasma_or_Bloo d_by_Creatini ne-based_form ula_MDRD_ All Hematocrit_V unknown 44.9 unknown % _4544-3 unknow n unknown olume_Fractio n_of_Blood_by _Automated_co unt All bilirubin_se unknown 1.8 unknown mg/dL _43 unknown unknown rum_total All alanine_amin unknown 19 unknown U/L _40 unknown unknown otransferase_ SGPT_serum All carbon_dioxi unknown 27 unknown mmol/L _3962 unknown unknown de_serum_tota l All aspartate_am unknown 21 unknown U/L _39 unknown unknown inotransferas e_SGOT_serum All protein_tota unknown 8.0 unknown g/dL _36 unknown unknown l_serum All blood_glucos unknown 117 unknown mg/dL _3565 unknown unknown e All potassium_bl unknown 3.7 unknown meq/L _3483 unknown unknown ood All mean_corpusc unknown 87.7 unknown fL _315 unknown unknown ular_volume_R BC All Urea_nitroge unknown 17 unknown mg/dL _3094-0 unknow n unknown n_Mass_volume _in_Serum_or_ Plasma All globulin_ser unknown 3.6 unknown _3059 unknown unknown um All alkaline_pho unknown 81 unknown U/L _3 unknown unknown sphatase_seru m All Sodium_Moles unknown 138 unknown mmol/L _2951-2 unknow n unknown _volume_in_Se rum_or_Plasma All Protein_Mass unknown 8.0 unknown g/dL _2885-2 unknow n unknown _volume_in_Se rum_or_Plasma All eosinophil_c unknown 0.0 10 unknown _285 unknown unknown ount_blood 3/UL All anion_gap_se unknown 12.0 unknown _279 unknown unknown rum All mean_platele unknown 10.0 unknown fL _2784 unknown unknown t_volume All C-reactive_p unknown < 1.0 unknown _2704 unknown unknown rotein_serum mg/dL All basophil_cou unknown 0.1 10 unknown _2427 unknown unknown nt_blood 3/UL All monocyte_cou unknown 0.6 10 unknown _2422 unknown unknown nt_blood 3/UL All lymphocyte_c unknown 1.7 10 unknown _2420 unknown unknown ount_blood 3/UL All neutrophil_c unknown 8.2 10 unknown _2418 unknown unknown ount_blood 3/UL All Glucose_Mass unknown 117 unknown mg/dL _2344- unknow n unknown _volume_in_Se rum_or_Plasma All Globulin_Mas unknown 3.6 unknown _6- unknow n unknown s_volume_in_S david All Creatinine_M unknown 0.6 unknown mg/dL _2159- unknow n unknown ass_volume_in _Serum_or_Pla sma All Chloride_Mol unknown 99 unknown mmol/L _2074- unknow n unknown es_volume_in_ Serum_or_Plas ma All carbon_dioxi unknown 27 unknown mmol/L _2028-05 unknow n unknown de_serum_tota l All Calcium_Mole unknown 9.0 unknown mg/dL _1999- unknow n unknown s_volume_in_S erum_or_Plasm a All albumin_seru unknown 4.4 unknown g/dL _2 unknown unknown m All C_reactive_p unknown < 1.0 unknown _1987- unknow n unknown rotein_Mass_v mg/dL olume_in_Seru m_or_Plasma All Bilirubin.to unknown 1.8 unknown mg/dL _1974- unknow n unknown tal_Mass_volu me_in_Serum_o r_Plasma All Aspartate_am unknown 21 unknown U/L _1919- unknow n unknown inotransferas e_Enzymatic_a ctivity_volum e_in_Serum_or _Plasma All Anion_gap_4_ unknown 12.0 unknown _1862-0 unknow n unknown in_Serum_or_P lasma All creatinine_s unknown 0.6 unknown mg/dL _18 unknown unknown david All Alkaline_pho unknown 81 unknown U/L _1783-0 unknow n unknown sphatase_Enzy matic_activit y_volume_in_B lood All Albumin_Glob unknown 1.2 unknown _1759-0 unknow n unknown ulin_Mass_Rat io_in_Serum_o r_Plasma All Albumin_Mass unknown 4.4 unknown g/dL _1751-7 unknow n unknown _volume_in_Se rum_or_Plasma All Alanine_amin unknown 19 unknown U/L _1742-6 unknow n unknown otransferase_ Enzymatic_act ivity_volume_ in_Serum_or_P lasma All mean_corpusc unknown 33.0 unknown g/dL _17029 unknown unknown ular_hemoglob in_concentrat ion_rbc All sodium_serum unknown 138 unknown mmol/L _159 unknown unknown All albumin_glob unknown 1.2 unknown _146 unknown unknown ulin_ratio_se rum All chloride_ser unknown 99 unknown mmol/L _13 unknown unknown um All calcium_seru unknown 9.0 unknown mg/dL _11 unknown unknown m All mean_corpusc unknown 28.9 unknown pg _1031 unknown unknown ular_hemoglob in_RBC All red_blood_ce unknown 13.9 unknown % _1030 unknown unknown ll_distributi on_width All T unknown 10.7 unknown WBC unknown unkn own X10 3/UL All T unknown 1.8 unknown mg/dL TOTAL_BI unknown un known LI All T unknown 13.9 unknown % RDW unknown unkn own All T unknown 5.12 unknown RBC unknown unkn own 10 6/UL All T unknown 8.0 unknown g/dL PRO_TOTA unknown un known L All T unknown 303 10 unknown PLT unknown unkn own 3/UL All NEUTROPHILS_ unknown 8.2 10 unknown NE_ unknown unknown AUTO_ 3/UL All T unknown 8.2 10 unknown NEUT_AUT unknown un known 3/UL O_ All T unknown 138 unknown mmol/L NA unknown unkn own All T unknown 10.0 unknown fL MPV unknown unkn own All MONOCYTES_AU unknown 0.6 10 unknown MO_ unknown unknown TO_ 3/UL All T unknown 0.6 10 unknown MONO_AUT unknown un known 3/UL O_ All T unknown 87.7 unknown fL MCV unknown unkn own All T unknown 33.0 unknown g/dL MCHC unknown unkn own All T unknown 28.9 unknown pg MCH unknown unkn own All LYMPHOCYTES_ unknown 1.7 10 unknown LY_ unknown unknown AUTO_ 3/UL All T unknown 1.7 10 unknown LYMPH_AU unknown un known 3/UL TO_ All T unknown 3.7 unknown meq/L K unknown unkn own All T unknown 14.8 unknown g/dL HGB unknown unkn own All T unknown 44.9 unknown % HCT unknown unkn own All T unknown 117 unknown mg/dL GLU unknown unkn own All T unknown 3.6 unknown GLOB unknown unkn own All T unknown 103 unknown mL/min GFR_-_MD unknown un known RD All GFR_-_MDRD unknown 103 unknown mL/min GFR unknown unknown All T unknown 12.0 unknown GAP unknown unkn own All EOSINOPHILS_ unknown 0.0 10 unknown EO_ unknown unknown AUTO_ 3/UL All T unknown 0.0 10 unknown EOS_AUTO unknown un known 3/UL _ All OYQ_-_M-RTXY unknown < 1.0 unknown CRP_[facility]_ unkno wn unknown TIVE_PROTEIN mg/dL All T unknown < 1.0 unknown CRP unknown unkn own mg/dL All T unknown 0.6 unknown mg/dL CREAT unknown unkn own All T unknown 27 unknown mmol/L CO2 unknown unkn own All T unknown 99 unknown mmol/L CL unknown unkn own All T unknown 9.0 unknown mg/dL CA unknown unkn own All T unknown 17 unknown mg/dL BUN unknown unkn own All BILIRUBIN_TO unknown 1.8 unknown mg/dL BILIT unknown unknown COURTNEY All BASOPHILS_AU unknown 0.1 10 unknown BA_ unknown unknown TO_ 3/UL All T unknown 0.1 10 unknown BASO_AUT unknown un known 3/UL O_ All T unknown 1.2 unknown A_G_RATI unknown un known O All T unknown 21 unknown U/L AST unknown unkn own All T unknown 19 unknown U/L ALT_SGPT unknown un known _ All ALT_ALANINE_ unknown 19 unknown U/L ALT unknown unknown AMINOTRANSFER ASE All ALKALINE_PHO unknown 81 unknown U/L ALP unknown unknown SPHATASE All T unknown 81 unknown U/L ALK_PHOS unknown un known All T unknown 4.4 unknown g/dL ALB unknown unkn own All ALBUMIN_GLOB unknown 1.2 unknown AGRATIO unknow n unknown ULIN_RATIO Vital Signs date measurement value source 20211028 weight_standard 188.4 lb 20211028 weight_metric 85.46 kg 20211028 respiration_rate 16 /min 20211028 height_standard 56.5 in [id number] height_metric 143.51 cm 20211028 heart_rate 88 /min 20211028 BP_systolic 174 mm[Hg] 20211028 BP_diastolic 94 mm[Hg] 20211028 BMI 41.64 kg/m2
[2021-11-25] MEDS ORDERED: POTASSIUM CHLOR 10 MEQ/100 ML 10 MEQ/100 ML BAG IV STA (11:06)
--- NOTE | 2021-11-25 12:05 | CT Report ---
PROCEDURE: Abdomen/Pelvis WO INDICATIONS: R flank pain TECHNIQUE: Noncontrast 5 mm thick sections acquired from the diaphragms to the symphysis. 5 mm coronal and sagi ttal reformats were then performed. For radiation dose reduction, the following was used: automated exposure control, adjustment of mA and/or kV according to patient size. COMPARISON: None. FINDINGS: Inferior chest: No focal consolidation, pleural effusion, or pneumothorax. No cardiomegaly or perica rdial effusion. Gallbladder: The gallbladder is distended with a smooth wall. A 1 cm calcified gallstone is seen in the region of the gallbladder neck. At least 2 other gallstones are seen. Biliary tree: No intra-or extrahepatic biliary ductal dilatation. Liver: The liver demonstrates normal appearance. 2.6 cm hypoattenuating lesion in the right hepatic lobe, most consistent with a cyst. Spleen: Normal size and morphology is seen. Pancreas: Normal morphology without masses or inflammatory changes. Adrenals: Normal size without masses. Kidneys: Normal size and morphology. No evidence of obstructive uropathy. 1.1 cm fat attenuation lesi on in the right interpole, most consistent with an angiomyolipoma. Vasculature: No evidence of aneurysm or other significant vascular pathology. Lymphatic system: No pathologic enlargement by size criteria. Bowel: No intestinal obstruction. Normal appendix. Peritoneum/Retroperitoneum: No free intraperitoneal gas or large collection. Urinary bladder: Not well distended. Pelvic organs: No significant abnormality. Bones/soft tissues: Trace fat-containing periumbilical hernia. Minimal grade 1 anterolisthesis at L4- 5. IMPRESSION: 1.Cholelithiasis as detailed above. Reviewed by: Ron Jennings MD on 11/25/2021 12:04 PM PST Approved by: Ron Jennings MD on 11/25/2021 12:04 PM PST Station ID: [id number]
[2021-11-25 15:05] VITALS: BP 140/88
--- NOTE | 2021-11-25 15:59 | Ultrasound Report ---
PROCEDURE: Abdomen Limited INDICATIONS: RUQ pain TECHNIQUE: Real-time focused scanning was performed of the abdominal right upper quadrant, with image documentat ion. COMPARISON: Correlation made to CT performed earlier the same day FINDINGS: The liver is normal size with a homogeneous echotexture. No visible masses. The common duct is only partially distended. There is nonmobile 6 mm stone at the gallbladder neck. T he gallbladder wall is 2.9 mm, at the upper limits of normal. No pericholecystic fluid or Trevino sign . No intra or extrahepatic biliary dilatation. The visible portion of the pancreas is normal. The right kidney is normal in size and morphology without hydronephrosis. No right upper quadrant free fluid. IMPRESSION: 1. Cholelithiasis without convincing sonographic evidence of acute cholecystitis. Gallbladder wall is at the upper limits of normal for thickness, probably accentuated by only partial distention. 2. Otherwise normal right upper quadrant. 3. Preliminary results given by the technologist to Dr. Goodman at 1405 hours. Reviewed by: Carmita Buenrostro MD on 11/25/2021 3:58 PM PST Approved by: Carmita Buenrostro MD on 11/25/2021 3:58 PM PST Station ID: [id number]
== END 2021-11-25 15:05 | disposition home or self-care (01) ==
LOC: ED 10:05
DX: K80.20 Calculus of gallbladder without cholecystitis without obstruction (principal); I10 Essential (primary) hypertension
CPT/HCPCS: 36415; 80053; 81001; 81003; 83690; 85025; 87086; 96361; 96374; 99284